=== PATIENT | female | born 1985 | race American Indian/Alaskan Native ===

== ENCOUNTER 2021-01-15 21:59 | Emergency (ER) | payer SELFPAY ==
--- NOTE | 2021-01-16 11:25 | Electrocardiograph Report ---
[facility] Test Date: 2021-01-15 Test Time: 23:00:37 Pat Name: CRISTIAN MACKEY Department: Room: Gender: [place] Operator: CLEMENCIA : 1985 Requested By: BEHZAD PASTOR Order Number: [id number] Reading MD: Moisés White Measurements Intervals [place] Rate: 73 P: 28 TN: 149 QRS: 45 QRSD: 83 T: 32 QT: 366 QTc: 404 Interpretive Statements Sinus rhythm No previous ECG available for comparison Electronically Signed On 01-16-2021 11:24:46 EDT by Moisés White
== END 2021-01-16 05:10 ==
LOC: ED 21:59
DX: R07.89 Other chest pain (principal); Z53.21 Procedure and treatment not carried out due to patient leaving prior to being seen by health care provider
CPT/HCPCS: 93005